=== PATIENT | female | born 1935 | race Caucasian/White ===

== ENCOUNTER 2018-07-13 09:54 | Emergency (ER) | payer OTHER ==
[~2018-07-13] VITALS: Wt 64.1 kg
[~2018-07-13 09:54] MED LIST: ASPI-650; HYDR28CR36; LISI-471; LOVA20TA
[2018-07-13] MEDS ORDERED: ACETAMINOPHEN 325 MG TAB PO ONE (11:30)
[2018-07-13] MEDS ORDERED: ASPI81TA52 PO (11:58)
[2018-07-13] MEDS ORDERED: LISI-471 PO (11:58)
[2018-07-13] MEDS ORDERED: ATOR20TA38 PO (11:59)
--- NOTE | 2018-07-13 13:12 | ERD ---
ER Documentation Chief Complaint Chief Complaint COUGH X 1 WEEK HPI This is an 83-year-old female with a past medical history of hypertension, hyperlipidemia who is presenting with a cough for a week. She has had some chest and nasal congestion. The patient does not endorse any fever or chills. She does endorse left-sided chest discomfort with coughing. She does not endorse any significant shortness of breath. She does not endorse any diaphoresis. She does endorse feeling fatigued and a little lightheaded. The patient has had no headache or vision changes. The patient does not endorse neck or back pain. The patient denies abdominal pain. The patient denies changes to bowel movements or urination. The patient has had no focal deficits. The patient has had no weakness or numbness or tingling to the face or extremities. ROS All systems reviewed and are negative except as per history of present illness. Medications Home Meds Reported Medications Atorvastatin Calcium* (Atorvastatin Calcium*) 20 Mg Tablet, 20 MG PO QHS, #30 TAB 07/13/18 Lisinopril* (Lisinopril*) 20 Mg Tablet, 20 MG PO DAILY, #30 TAB 07/13/18 Aspirin (Low Dose Aspirin) 81 Mg Tablet.dr, 81 MG PO DAILY, #30 TAB 07/13/18 Discontinued Reported Medications Hydrocortisone (Cortisone) 14 Gm Cream.gm. 05/06/11 Lovastatin* (Lovastatin*) 20 Mg Tablet 04/22/10 Aspirin (Aspirin) 81 Mg Tablet 04/16/10 Lisinopril* (Lisinopril*) 20 Mg Tablet 04/16/10 Allergies Allergies: Coded Allergies: No Known Drug Allergy (Verified Allergy, Mild, 07/13/18) PMhx/Soc History of Surgery: Yes (LT BREAST, THYROID) Anesthesia Reaction: No Hx Neurological Disorder: No Hx Respiratory Disorders: No Hx Cardiac Disorders: Yes (HTN, hyperlipidemia) Hx Psychiatric Problems: No Hx Miscellaneous Medical Probl: No Hx Alcohol Use: No Hx Substance Use: No Hx Tobacco Use: No Smoking Status: Never smoker FmHx Family History: No diabetes Physical Exam Vitals Vital Signs Date Temp Pulse Resp B/P (MAP) Pulse Ox O2 O2 Flow FiO2 Time Delivery Rate 07/13/18 97.5 69 18 199/75 100 Room Air 10:20 (116) 07/13/18 97.5 71 18 213/86 95 09:59 (128) Physical Exam Const: No acute distress Head: Atraumatic Eyes: Normal Conjunctiva ENT: Normal External Ears, Nose and Mouth. Neck: Full range of motion. No meningismus. Resp: Clear to auscultation bilaterally Cardio: Regular rate and rhythm, no murmurs Abd: Soft, non tender, non distended. Normal bowel sounds Skin: No petechiae or rashes Back: No midline or flank tenderness Ext: No cyanosis, or edema Neur: Awake and alert Psych: Normal Mood and Affect Result Diagram: 07/13/18 1138 07/13/18 1138 Results 24 hrs Laboratory Tests Test 07/13/18 11:38 White Blood Count 5.5 10^3/ul Red Blood Count 4.45 10^6/ul Hemoglobin 14.1 g/dl Hematocrit 41.0 % Mean Corpuscular Volume 92.1 fl Mean Corpuscular Hemoglobin 31.7 pg Mean Corpuscular Hemoglobin Concent 34.4 g/dl Red Cell Distribution Width 12.1 % Platelet Count 194 10^3/UL Mean Platelet Volume 9.1 fl Immature Granulocytes % 0.400 % Neutrophils % 59.1 % Lymphocytes % 27.1 % Monocytes % 8.7 % Eosinophils % 4.3 % Basophils % 0.4 % Nucleated Red Blood Cells % 0.0 /100WBC Immature Granulocytes # 0.020 10^3/ul Neutrophils # 3.3 10^3/ul Lymphocytes # 1.5 10^3/ul Monocytes # 0.5 10^3/ul Eosinophils # 0.2 10^3/ul Basophils # 0.0 10^3/ul Nucleated Red Blood Cells # 0.0 10^3/ul Sodium Level 142 mmol/L Potassium Level 4.1 mmol/L Chloride Level 107 mmol/L Carbon Dioxide Level 29 mmol/L Anion Gap 6 Blood Urea Nitrogen 20 mg/dl Creatinine 0.54 mg/dl Est Glomerular Filtrat Rate mL/min mL/min Glucose Level 86 mg/dl Calcium Level 9.2 mg/dl Troponin I < 0.012 ng/ml Current Medications Medications Dose Sig/Roya Start Time Status Last (Trade) Ordered Route PRN Stop Time Admin Dose Reason Admin 650 mg ONCE ONCE 07/13/18 DC 07/13/18 Acetaminophen PO 11:30 07/13/18 11:24 (Tylenol 11:31 Tab) Procedures/MDM MDM The patient's presentation warrants further investigation. Previous medical records, if available, were reviewed. LABS The patient's laboratory testing was obtained and reviewed. No emergent treatment was required unless described below. CBC: No E/o systemic infection or severe anemia or thrombocytopenia Chemistry: No E/o severe acidosis or alkalosis or renal failure or diabetic ketoacidosis Troponin: No E/o acute ischemia EKG EKG read by me: Rate/Rhythm: Regular rate and rhythm at a rate of 63 beats per minute Intervals: Normal [place]: Normal Impression: LVH. No evidence of acute ischemia or arrhythmia IMAGING Imaging and Radiology interpretation reviewed. CXR FINDINGS: Atherosclerotic changes are seen in the aortic arch. The heart is mildly enlarged. There is rounded density at the right lung base that likely represents a small eventration of the hemidiaphragm. The lungs are otherwise grossly clear. There is no pleural effusion or pneumothorax. The bones and soft tissue show no acute change. IMPRESSION: 1. Mild cardiomegaly. 2. Rounded density at the right lung base that likely represents a small eventration of the right hemidiaphragm. 3. Otherwise, no significant abnormalities are identified. Electronically viewed and signed by Sen Morales Physician on 07/13/2018 11:03 TREATMENT/DISPOSITION The patient presents with a cough. I do anticipate an upper respiratory infection. I do not see any evidence of pneumonia. I do not suspect influenza. The patient does endorse chest discomfort with coughing. A cardiac work-up was completed to evaluate for a possible cardiac etiology. The patient's chest xray does not reveal pneumonia or pneumothorax or pleural effusions or pulmonary edema. The patient does not have a widened mediastinum and does not have signs or symptoms concerning for thoracic aortic aneurysm or dissection. The patient does not have pneumomediastinum or signs concerning for esophageal tear or rupture. The patient has no clinical or radiographic signs of pericardial effusion or tamponade. The patient does not have pneumoperitoneum and I have decreased suspicion of viscus perforation as possible referred pain. The patient does not have a history of heart failure and I have low suspicion for this. The patient does not have a diagnosis of COPD and is not wheezing today. The patient is not tachypneic or hypoxic. The patient is breathing comfortably and without pleuritic pain. The patient is not on hormonal therapy. The patient has no history of clotting or bleeding disorders. The patient has no calf tenderness. The patient has had no hemoptysis. I have decreased suspicion for PE. The patient's troponin and EKG are reassuring. I have low suspicion for acute coronary syndrome. The patient was given a dose of Tylenol in the emergency department. DISCHARGE Upon reevaluation of the patient, symptoms have improved. No emergent diagnoses were identified. At this time, I feel that the patient stable for discharge. The patient was instructed to follow-up with a primary care physician in 1-3 days. The patient will be given strict precautions with which to return to the emergency department. Prescriptions: Tessalon Perles, ibuprofen The patient's blood pressure was elevated at greater than 120/80 while in the emergency department. The patient was otherwise stable with no evidence of hypertensive urgency or emergency. The patient does not require admission for blood pressure control. I have discussed with the patient the risks of hypertension. I have instructed the patient to return to the ER for any new or worsening symptoms including chest pain, shortness of breath, headache, blurred vision, confusion, nausea, vomiting or LOC. I have advised the patient to follow up with the primary care physician for outpatient monitoring and treatment for hypertension in 1-3 days. Disclaimer: Inadvertent spelling and grammatical errors are likely due to EHR/dictation software use and do not reflect on the overall quality of patient care. Note that the electronic time recorded on this note does not necessarily reflect the actual time of the patient encounter. Departure Diagnosis: Primary Impression: Cough Additional Impressions: Chest wall pain Upper respiratory infection URI type: unspecified URI Qualified Codes: J06.9 - Acute upper respiratory infection, unspecified Condition: Stable Patient Instructions: Chest Pain, Uncertain Cause, Cough, Chronic, Uncertain Cause, (Adult) Additional Instructions: Thank you for for coming to [facility] for your care today. Please ask your nurse or provider if you have questions about your care today and do not leave until all your questions have been answered. Please use any medications given as directed and follow-up with your doctor (or the doctor you were referred to) in the next 1-3 days. If you do not have a primary care doctor you may follow up at the [facility] or [facility] (listed below). You may also use motrin and tylenol as needed for fever and/or pain unless instructed otherwise by your provider or nurse. Indications for more urgent follow-up have been discussed, but you may return to the Emergency Department at ANY time for any worrisome or worsening symptoms. If you have abdominal pain, please know that no test or exam you received is perfect and you should follow up within 8 hours for continued pain. If you had any imaging studies today, such as an X-Ray or CT Scan, these studies will be reviewed later by a radiologist. You will be called if there are important findings that were not identified today, so make sure the contact information you provided at registration is correct. If you received any narcotic pain control medicine today, such as Vicodin, Morphine or Dilaudid, your coordination and judgment may be affected for a number of hours. Please do not drive or operate heavy machinery, and you may want someone to assist you at home. If you were given a prescription for narcotic medication, be aware that it is very addictive- use sparingly and only if necessary. PLEASE SEEK FURTHER EVALUATION AND MANAGEMENT AT YOUR DOCTORS OFFICE WITHIN THE NEXT 1-3 DAYS. IT IS YOUR RESPONSIBILITY TO MAKE AN APPOINTMENT FOR FOLOW-UP CARE. IF YOU HAVE A PRIMARY DOCTOR, PLEASE CALL THEIR OFFICE TO SCHEDULE AN APPOINTMENT FOR FOLLOW UP. IF YOU DO NOT HAVE A PRIMARY DOCTOR YOU CAN CALL OUR PHYSICIAN REFERRAL HOTLINE AT IF YOU CAN NOT AFFORD TO SEE A PHYSICIAN YOU CAN CHOSE FROM THE FOLLOWING [facility]: [facility] [address] [facility] [address] [facility] [facility] [address] [facility] [address] [facility] [address] [facility]. [facility]. [address] MD July 13, 2018 13:09
[2018-07-13] MEDS ORDERED: BENZ-6 PO (13:14)
[2018-07-13] MEDS ORDERED: IBUP-1541 PO (13:14)
[2018-07-13 13:34] VITALS: BP 193/81; PULSE 59; RESP 18
== END 2018-07-13 13:41 | disposition home or self-care (01) ==
LOC: E/R 09:54
DX: J06.9 Acute upper respiratory infection, unspecified (principal); R07.89 Other chest pain; I10 Essential (primary) hypertension; Z79.82 Long term (current) use of aspirin
CPT/HCPCS: 36415; 71045; 80048; 84484; 85025; 93005; Z7502; Z7610